=== PATIENT | female | born 1970 | race Asian ===

== ENCOUNTER 2017-08-19 01:04 | Emergency (ER) | payer BC ==
[~2017-08-19] VITALS: Ht 170.2 cm; Wt 73.9 kg
[2017-08-19 01:10] VITALS: Ht 170.2 cm; Wt 73.9 kg
[2017-08-19 07:33] VITALS: BP 125/82
== END 2017-08-19 07:34 | disposition home or self-care (01) ==
LOC: ED 01:04
DX: S01.81XA Laceration without foreign body of other part of head, initial encounter (principal); X58.XXXA Exposure to other specified factors, initial encounter; Y93.89 Activity, other specified; Y92.89 Other specified places as the place of occurrence of the external cause; Y99.8 Other external cause status